=== PATIENT | male | born 1930 | race Caucasian/White ===

== ENCOUNTER 2018-09-22 08:56 | Day surgery (SDC) | payer OTHER ==
[~2018-09-22] VITALS: Ht 182.9 cm; Wt 76.5 kg
[~2018-09-22 08:56] MED LIST: ASPI325; ASPI325 PO; ASPI81EC PO; ATOR40TA PO; CALC.25 PO; CARV6.25 PO; CEPH500 PO; CLOP75 PO; HYDACE10B PO; HYDR-86 PO; ISOMON60ER PO; Isosorbide Mono30 MG PO; LO-DOSE ASPIRIN81 MG PO; MAGOXI400 PO; METO25 PO; METO25ER PO; METOPROLOL; NITR.4SL SL; PANT40 PO; POTCHL10ER PO; RANO500T PO; ROSU10TA PO; TORSE20 PO; TRAM50 PO; XARELTO15 MG PO
[2018-09-22] MEDS ORDERED: Prinivil10 MG PO (09:26)
== END 2018-09-22 11:00 | disposition home or self-care (01) ==
LOC: ORSCSDS 08:56
PROVIDERS: Internal Medicine Gastroenterology
PROC: 0DB98ZX Excision of Duodenum, Via Natural or Artificial Opening Endoscopic, Diagnostic (ICD-10-PCS; principal; 2018-09-22 10:15)
PROC: 0DB68ZX Excision of Stomach, Via Natural or Artificial Opening Endoscopic, Diagnostic (ICD-10-PCS; principal; 2018-09-22 10:15)
DX: D50.9 Iron deficiency anemia, unspecified (principal); K29.80 Duodenitis without bleeding; K29.00 Acute gastritis without bleeding; K44.9 Diaphragmatic hernia without obstruction or gangrene; I10 Essential (primary) hypertension; I25.10 Atherosclerotic heart disease of native coronary artery without angina pectoris; E78.5 Hyperlipidemia, unspecified; I25.2 Old myocardial infarction; G47.33 Obstructive sleep apnea (adult) (pediatric); Z79.01 Long term (current) use of anticoagulants; Z79.82 Long term (current) use of aspirin; Z79.899 Other long term (current) drug therapy
CPT/HCPCS: 88305; 88342; J2704; J7120

== ENCOUNTER → 2019-10-12 | Outpatient (CLI) | payer OTHER ==
[~2019-10-12] MED LIST changes: +Prinivil10 MG PO
[2019-10-13 14:07] LABS: Stool Occult Blood Guaiac 1 Neg (Neg)
[2019-10-13 14:14] LABS: Stool Occult Bld Immuno 1 Negative (NEGATIVE)
== END | disposition home or self-care (01) ==
LOC: LAB SHORT 18:40 → LAB 18:40 → LAB FUT 11-14 16:30
PROVIDERS: Internal Medicine; Internal Medicine Gastroenterology
DX: D50.9 Iron deficiency anemia, unspecified (principal); N25.81 Secondary hyperparathyroidism of renal origin; E11.8 Type 2 diabetes mellitus with unspecified complications; Z79.899 Other long term (current) drug therapy
CPT/HCPCS: 82270; G0328